=== PATIENT | male | born 1990 | race Caucasian/White ===

== ENCOUNTER 2021-08-27 16:16 | Emergency (ER) | payer OTHER, SELFPAY ==
--- NOTE | ~2021-08-27 | XR_ITS ---
EXAMINATION: XR chest 1V CLINICAL INFORMATION: Shortness of breath COMPARISON: None TECHNIQUE: XR chest 1V Tubes and lines: None Lungs and pleura: Left parahilar interstitial opacities concerning for interstitial pneumonitis. No dense lobar consolidation. No pleural effusion or pneumothorax. Heart and mediastinum: The mediastinum is within normal limits.. Bones/soft tissue: Skeletal structures included are normal for patient's age. XR/XR chest 1V IMPRESSION: Left perihilar interstitial opacity concerning for possible interstitial pneumonitis. Please correlate with patient's laboratory data and Covid results. No dense lobar consolidation or pleural effusion present.
[2021-08-27 16:44] VITALS: BP 151/68; PULSE 104; RESP 18; TEMP 37.2; O2SAT 98; BMI 38.3
--- NOTE | 2021-08-27 16:47 | ECG_ITS ---
Test Reason : SOB Blood Pressure : / mmHG Vent. Rate : 105 BPM Atrial Rate : 105 BPM P-R Int : 142 ms QRS Dur : 080 ms QT Int : 318 ms P-R-T Axes : 028 007 001 degrees QTc Int : 420 ms Sinus tachycardia Otherwise normal ECG No previous ECGs available Referred By: Generic ED Physician Electronically Signed By:Ramy Sibley
[2021-08-27 17:08] LABS: MANUAL DIFF FLAG NO
[2021-08-27 17:10] LABS: Hematocrit 40.9 % (42.0-52.0); Hemoglobin 13.2 g/dl (14.0-18.0); Imm Gran Abs Auto 0.02 X10*3/uL (0.00-0.03); Imm Gran Pct Auto 0.3 % (0.0-0.4); Lymphocytes Absolute Auto 1.7 X10*3/uL (1.2-4.9); Lymphocytes Percent Auto 27.2 % (20-40); Mean Corpuscular HGB Conc 32.3 g/dl (31.0-36.0); Mean Corpuscular Hemoglobin 27.5 pg (27.0-33.0); Mean Corpuscular Volume 85.2 fL (80.0-98.0); Mean Platelet Volume 10.9 fL (9.4-12.4); Monocytes Absolute Auto 0.7 X10*3/uL (0.1-1.2); Monocytes Percent Auto 10.6 % (2-11); Neutrophils Absolute Auto 3.8 x10*3/uL (2.0-8.3); Neutrophils Percent Auto 61.9 % (45-73); Platelet Count 237 X10*3/uL (160-400); Red Cell Distribution Width 12.9 % (11.0-16.0); White Blood Count 6.1 X10*3/uL (4.8-10.8)
[2021-08-27 17:28] LABS: B Type Natriuretic Peptide < 10 pg/mL (<100); Troponin-I High Sensitivity < 3.5 ng/L (<3.5-35.0)
[2021-08-27 17:32] LABS: Anion Gap 13 (12-20); Blood Urea Nitrogen 9 mg/dL (9-16); Calcium 8.8 mg/dL (8.4-10.2); Carbon Dioxide 27 mmol/L (22-29); Chloride 100 mmol/L (96-108); Creatinine Clr Calc Pharmacy 148.2; Estimated Glomerular Filt Rate > 60; Glucose Random 93 mg/dL (60-115); Sodium 136 mmol/L (135-145)
[2021-08-27 19:28] VITALS: BP 104/71; PULSE 103; RESP 18; TEMP 37; O2SAT 99
[2021-08-27 19:44] LABS: COVID-19 Test Positive (Negative); IDNOW Serial# 9DD0AD1C
== END 2021-08-27 23:13 | disposition left against medical advice (07) ==
PROVIDERS: Emergency Provider Emergency Medicine
DX: U07.1 COVID-19 (principal); R51.9 Headache, unspecified; R06.02 Shortness of breath; Z79.899 Other long term (current) drug therapy
CPT/HCPCS: 36415; 71045; 80048; 83880; 84484; 85025; 87635; 93005; 99283

== ENCOUNTER 2025-07-17 09:39 | Outpatient (AMB) | payer MEDICARE, SELFPAY ==
--- NOTE | 2025-07-17 09:46 | MHC.PC.OV ---
Vital Signs 07/17/25 09:48 Height 6 ft 0.05 in Weight 298 lb BMI 40.4 BP 124/80 Respiration 16 Pulse 68 Pulse Source Pulse Oximeter Temp 97.8 F Temp Source Temporal Artery Scan Pulse Oximetry (%) 96 Oxygen Delivery Method Room Air Intake Visit Reasons: establish care Membership Assistant Required: No Accompanied by: Self / Same As Patient Allergies No Known Allergies Allergy (Verified 07/17/25 10:02) Medication List - Last Reconciled 07/17/25 by Maricarmen Taveras PA-C No Known Home Meds Tobacco use date assessed: 07/17/25 Dental Screening Dental Screen Date: 07/17/25 Did you have a dental visit in the last 12 months?: No Did you have a dental problem in the last 6 months where you did not have access to dental care?: No Was dental information given to patient?: Patient has dentist HPI establish care HPI Details The patient is a 34-year-old male presenting as a new patient for a physical examination and to discuss weight loss. 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 The patient's family history is positive for a mother with diabetes mellitus, type unknown, and a father, age 65, who was recently diagnosed with multiple myeloma. There is no family history of colon cancer or thyroid disease. The patient is a team truck driver and recognizes that his occupation may contribute to unhealthy eating habits. He denies any use of tobacco or alcohol. He reports he has been receiving therapy online with Claudia Edmonds for the last two months. He takes no medications. Social History - Employment: The patient is a team truck driver. - Substance Use: The patient denies use of alcohol and tobacco. - psychosocial: The patient has been seeing a therapist online for the past two months. FOR[facility]LY [facility], [facility] Medical History (Updated 07/17/25 @ 11:03 by Maricarmen Taveras PA-C) Family history of multiple myeloma Family history of diabetes mellitus Morbid obesity with BMI of 40.0-44.9, adult Annual physical exam Encounter for assessment of STD exposure Family History Father Myeloma Mother Diabetes Social History Housing: House Alcohol intake: current Alcohol intake frequency: holidays/special occasions only Patient Tobacco Use Status: Never used Tobacco service: No Current occupational status: employed Cognitive needs: No Hearing needs: No Vision needs: No Questionnaire PHQ-9 Over the last 2 weeks, how often have you been bothered by any of the following problems? 1. Little interest or pleasure in doing things: not at all 2. Feeling down, depressed, or hopeless: not at all 3. Trouble falling or staying asleep, or sleeping too much: not at all 4. Feeling tired or having little energy: not at all 5. Poor appetite or overeating: not at all 6. Feeling bad about yourself - or that you are a failure or have let yourself or your family down: not at all 7. Trouble concentrating on things, such as reading the newspaper or watching television: not at all 8. Moving or speaking so slowly that other people could have noticed. Or the opposite - being so fidgety or restless that you have been moving around a lot more than usual: not at all 9. Thoughts that you would be better off or of hurting yourself in some way: not at all Total score: 0 Depression Screening Interpretation: Negative Depression Screening Done: Yes [id number] - PHQ-9 Billing: Yes Source: Developed by Drs. Tony Adair, Anh Dorsey, Carson Reed and colleagues, with an educational irena from [email or web address]. Thrive Questionnaire Date Thrive assessed: 07/17/25 I am a: Patient What is your living situation today?: I have a steady place to live Within the past 12 months, did the food you bought not last and you didn't have the money to get more?: Never true Within the past 12 months, did you worry whether your food would run out before you got money to buy more?: Never true Do you have trouble paying for medicines?: No Do you have trouble getting transportation to medical appointments?: No Do you have trouble paying your heating and electricity bill?: No Do you have trouble taking care of your child, family member or friend?: No Do you have trouble with day-to-day activities such as bathing, preparing meals, shopping, managing finances, etc.?: No Are you currently unemployed and looking for a job?: No Are you interested in more education?: No Please select the resources that you would like help with: None THRIVE Score: 0 AUDIT C Alcohol Use Questionnaire (AUDIT-C) 1. How often do you have a drink containing alcohol?: Monthly or less 2. How many drinks containing alcohol do you have on a typical day when you are drinking?: 1 or 2 3. How often do you have six or more drinks on one occasion?: Never Total Score: 1 Score Reviewed/Action Taken: Yes YESENIA-7 AMB Questionnaire YESENIA-7 Date YESENIA - 7 assessed: 07/17/25 Feeling nervous, anxious, or on edge: 0 = Not at all Not being able to stop or control worryin = Not at all Worrying too much about different things: 0 = Not at all Trouble relaxin = Not at all Being so restless that it is hard to sit still: 0 = Not at all Becoming easily annoyed or irritable: 0 = Not at all Feeling afraid as if something awful might happen: 0 = Not at all Total YESENIA-7 score (0-4 normal; 5-9 mild; 10-14 moderate; 15-21 severe): 0 Source: Developed by Drs. Tony Adair, Anh Dorsey, Carson Reed and colleagues, with an educational irena from [email or web address]. YESENIA-7 Assessment Billing YESENIA-7 Assessment Tool: YESENIA-7 Assessment [id number] Review of Systems Const Details: - Constitutional: Denies unintentional weight loss. - Cardiovascular: Denies chest pain. - Respiratory: Denies shortness of breath. - Gastrointestinal: Reports normal bowel movements. Denies black or bloody stools and denies abdominal pain. - Genitourinary: Denies pain over the kidneys. - Neurological: Denies numbness. - Integumentary: Denies breast lumps. - Musculoskeletal: Denies swelling in legs. - Psychiatric: Denies feeling depressed. All systems reviewed & are unremarkable except as noted in HPI and below Physical exam (Primary Care) Vital Signs: Last Vital Signs Temp 97.8 F 07/17/25 09:48 Pulse 68 07/17/25 09:48 Resp 16 07/17/25 09:48 BP 124/80 07/17/25 09:48 Pulse Ox 96 07/17/25 09:48 Oxygen Delivery Method Room Air 07/17/25 09:48 Care Plan Goal for BP management: <140/90 at Goal BMI result Body Mass Index 40.4 BMI Assessment/Plan discussion: High BMI High, discussed plan: lifestyle, weight reduction, dietary, physical activity, alcohol moderation and other Tobacco/Smoking Status: Tobacco use Status Tobacco use date assessed 07/17/25 07/17/25 09:54 Patient Tobacco Use Status Never used Tobacco 07/17/25 09:54 PHQ-9: PHQ-9 Score PHQ-9: Total score 0 07/17/25 09:54 Depression Screening Interpretation: Negative Thrive Assessment: Date of Thrive Assessment Date Thrive assessed 07/17/25 07/17/25 09:54 Const Other: Appearance: Alert. Oriented X3. No acute distress. Head: Normal external exam. Normocephalic. Atraumatic. Eyes: Pupils are equal, round, and reactive to light. Extraocular movements intact. Conjunctiva and sclera normal. Eyelids normal. Ears: External auditory canal normal. Tympanic membranes normal. Throat: Pharynx normal. Uvula midline. Moist mucous membranes. Neck: Normal inspection. Neck supple. Full range of motion. No adenopathy. Thyroid Normal. No meningeal signs. No neck mass noted. Cardiovascular: Normal heart rate and rhythm. Heart sound normal. No murmurs noted. Pulses normal throughout. Respiratory: No respiratory distress. Painless inspiration. Breath sounds normal. No wheezes/rales/rhonchi noted. Chest nontender. No accessory muscle usage noted or decreased air movement noted. Abdomen: Soft and nontender. Bowel sounds normal in all 4 quadrants. No distention noted. No organomegaly noted. No visible injury noted. Back: No costovertebral angle tenderness. Full range of motion noted. Skin: Skin warm and dry. Normal skin color. Normal skin turgor. No rashes/lesions/lacerations noted. Extremities: No lower extremity edema. Extremities exhibit normal range of motion. Extremities nontender. Neuro: Oriented X 3. No motor deficit. No sensory deficit. Reflexes normal. Office Procedures Flu Questionnaire Does the patient have a severe egg allergy?: No Does the patient have severe life threatening allergies?: No Does the patient have a fever or illness today?: No Has the patient ever had Guillain-[place]land Syndrome?: No Has the patient ever had any past reaction to a flu shot?: No Immunizations Fluarix [id number] (PF) 45 mcg (15 mcg x 3)/0.5 mL IM syringe Performing Provider: Maricarmen Taveras PA-C [facility] [place] Documented (not given) by: MILTON Olivera on 07/17/25 09:54 Reason Not Given: Patient Refused Coding Level of Care Code New Pt Level 4 (44266) New Pt Prev Care 18-39yr(22495 Diagnoses Annual physical exam Z00.00 Morbid obesity with BMI of 40.0-44.9, adult E66.01; Z68.41 Family history of diabetes mellitus Z83.3 Family history of multiple myeloma Z80.7 Encounter for assessment of STD exposure Z76.89 Additional Codes PHQ-9 - 36249 - PHQ-9 Billing: Yes ([id number]) YESENIA-7 Assessment Billing - YESENIA-7 Assessment Tool: YESENIA-7 Assessment 41175 ([id number]) Assessment & Plan Assessment & Plan (1) Annual physical exam: Code(s): Z00.00 - Encounter for general adult medical examination without abnormal findings Category: Medical Plan: Comprehensive fasting lab work was ordered, including a CBC, CMP, magnesium, inflammatory markers, lipid panel, hemoglobin A1c, PSA, thyroid studies, vitamin B12, and vitamin D. Additionally, a urinalysis was ordered. At the patient's request, a full STD panel including gonorrhea, chlamydia, herpes, HIV, and syphilis was ordered, along with a hepatitis panel. The patient was advised that a screening colonoscopy is not indicated until age 45 due to the absence of a family history of colon cancer. A follow-up visit is scheduled in one month to review the results. (2) Morbid obesity with BMI of 40.0-44.9, adult: Code(s): E66.01 - Morbid (severe) obesity due to excess calories; Z68.41 - Body mass index [BMI] 40.0-44.9, adult Category: Medical Plan: The patient is interested in weight loss but is hesitant to start injectable medications like Mounjaro or Ozempic due to concerns about side effects and long-term effects. He prefers to attempt a natural approach for a few months. Educational materials regarding high cholesterol and Mounjaro were provided. The plan is to obtain comprehensive lab work to screen for conditions such as diabetes and hyperlipidemia, and then decide on the best course of action. (3) Family history of diabetes mellitus: Code(s): Z83.3 - Family history of diabetes mellitus Category: Medical Plan: Given the patient's maternal history of diabetes mellitus, a hemoglobin A1c test has been ordered for screening. (4) Family history of multiple myeloma: Code(s): Z80.7 - Family history of other malignant neoplasms of lymphoid, hematopoietic and related tissues Category: Medical Plan: The patient's paternal history of multiple myeloma was noted. A complete blood count (CBC) was included in the ordered lab work as part of the general health screening. (5) Encounter for assessment of STD exposure: Code(s): Z76.89 - Persons encountering health services in other specified circumstances Category: Medical Plan: Patient requested STD testing. Denies any acute symptoms at this time. Plan Plan Patient was informed and verbally consented to the use of an ambient scribe for clinic note documentation during this visit. 1. Overweight The patient is interested in weight loss but is hesitant to start injectable medications like Mounjaro or Ozempic due to concerns about side effects and long-term effects. He prefers to attempt a natural approach for a few months. Educational materials regarding high cholesterol and Mounjaro were provided. The plan is to obtain comprehensive lab work to screen for conditions such as diabetes and hyperlipidemia, and then decide on the best course of action. 2. Encounter For General Adult Medical Examination Without Abnormal Findings Comprehensive fasting lab work was ordered, including a CBC, CMP, magnesium, inflammatory markers, lipid panel, hemoglobin A1c, PSA, thyroid studies, vitamin B12, and vitamin D. Additionally, a urinalysis was ordered. At the patient's request, a full STD panel including gonorrhea, chlamydia, herpes, HIV, and syphilis was ordered, along with a hepatitis panel. The patient was advised that a screening colonoscopy is not indicated until age 45 due to the absence of a family history of colon cancer. A follow-up visit is scheduled in one month to review the results. 3. Family History Of Diabetes Mellitus Given the patient's maternal history of diabetes mellitus, a hemoglobin A1c test has been ordered for screening. 4. Family History Of Multiple Myeloma The patient's paternal history of multiple myeloma was noted. A complete blood count (CBC) was included in the ordered lab work as part of the general health screening. I met with the patient, a 34-year-old male, who is establishing care for a physical exam and to address weight management. We discussed his interest in weight loss, and I presented options including injectable medications such as Mounjaro. The patient expressed a preference to try a natural approach first due to concerns about potential side effects and long-term effects. I provided him with informational handouts on both high cholesterol and Mounjaro for his review. We agreed to proceed with comprehensive lab work to screen for underlying conditions like diabetes or hypercholesterolemia, which will guide our management plan. The lab panel will include a CBC, CMP, lipids, HbA1c, PSA, thyroid function, vitamin levels, a urinalysis, and, at his request, a full STD and hepatitis panel. I advised him that routine colon cancer screening is recommended starting at age 45. I instructed him to complete the fasting blood work at his convenience and to schedule a follow-up appointment in one month to review the results and further discuss the plan. I informed him that I will contact him if any results are significantly abnormal. Orders: Orders Influenza [id number] Immunization Today Z23 - Encounter for immunization C Reactive Protein Today Z00.00 - Encounter for general adult medical examination without abnormal findings Comprehensive [place]. Panel Fast Today Z00.00 - Encounter for general adult medical examination without abnormal findings Hemoglobin A1c Today Z00.00 - Encounter for general adult medical examination without abnormal findings Lipid Panel Today Z00.00 - Encounter for general adult medical examination without abnormal findings Magnesium Today Z00.00 - Encounter for general adult medical examination without abnormal findings Vitamin B12 and Folate Today Z00.00 - Encounter for general adult medical examination without abnormal findings TSH reflex Free T4 Today Z00.00 - Encounter for general adult medical examination without abnormal findings UA CC w/rflx Micro + Cult Today Z00.00 - Encounter for general adult medical examination without abnormal findings RPR Monitor reflex titer Today Z76.89 - Persons encountering health services in other specified circumstances HIV Ab/Ag Today Z76.89 - Persons encountering health services in other specified circumstances Herpes Simplex Virus Ab IgG Today Z76.89 - Persons encountering health services in other specified circumstances Complete Blood Count Auto Diff Today Z00.00 - Encounter for general adult medical examination without abnormal findings Liver Panel Today Z00.00 - Encounter for general adult medical examination without abnormal findings Vitamin D 25-OH Total Today Z00.00 - Encounter for general adult medical examination without abnormal findings PSA,Total (Free>4and<10) Today Z00.00 - Encounter for general adult medical examination without abnormal findings CT NG by PCR Urine Today Z76.89 - Persons encountering health services in other specified circumstances Hepatitis A,B,C Profile Today Z76.89 - Persons encountering health services in other specified circumstances Patient Instructions: - Please go to the lab to get your blood drawn. - You must fast for 10-12 hours before the blood test, meaning nothing to eat or drink except for water or black coffee. - You do not need a paper order for the lab; simply walk in to the [facility] or [facility] locations when you are ready. - Please take some time to read the informational handouts you were given about high cholesterol and weight loss medication. - Schedule a follow-up appointment for one month from now to go over your lab results and discuss next steps. - We will call you if any of your lab results are abnormal.
[2025-07-17 09:48] VITALS: BP 124/80; PULSE 68; RESP 16; TEMP 36.6; O2SAT 96; BMI 40.4
== END 2025-07-17 10:19 | disposition home or self-care (01) ==
LOC: HO.HMCSH 09:39
PROVIDERS: PCP Physician Assistant Medical; Visit Provider Physician Assistant Medical
DX: Z00.00 Encounter for general adult medical examination without abnormal findings (principal); E66.01 Morbid (severe) obesity due to excess calories; Z68.41 Body mass index [BMI] 40.0-44.9, adult; Z83.3 Family history of diabetes mellitus; Z80.7 Family history of other malignant neoplasms of lymphoid, hematopoietic and related tissues; Z76.89 Persons encountering health services in other specified circumstances; Z23 Encounter for immunization

== ENCOUNTER → 2025-07-17 09:39 | Outpatient (BNVA) | payer MEDICARE, SELFPAY | PROVIDERS: PCP Physician Assistant Medical; Visit Provider Physician Assistant Medical | DX: Z00.00 Encounter for general adult medical examination without abnormal findings (principal); E11.9 Type 2 diabetes mellitus without complications; E66.01 Morbid (severe) obesity due to excess calories; Z68.41 Body mass index [BMI] 40.0-44.9, adult; Z28.21 Immunization not carried out because of patient refusal | CPT/HCPCS: 96127; 99385 ==